=== PATIENT | female | born 1995 | race African-American/Black ===

== ENCOUNTER 2017-01-18 15:03 | Emergency (ER) | payer SELFPAY ==
[~2017-01-18] VITALS: Ht 165.1 cm; Wt 131.5 kg
[2017-01-18 15:14] VITALS: BP 117/59
--- NOTE | 2017-01-18 17:46 | NUR ---
Pt taken to bed 8.
--- NOTE | 2017-01-18 17:50 | NUR ---
21/F PRESENT TO ER WITH BLOOD IN STOOL x TODAY @ 1345. PT DENIES N/V/D. PT DENIES INJURY OR TRAUMA. PAIN 5/10 CRAMPING LOWER ABDOMEN. DENIES N/V/D; SKIN IS PINK/WARM/DRY; AAOX4 WITH EVEN AND STEADY GAIT; LUNGS CLEAR BL; HR EVEN AND REGULAR; PT DENIES ANY FEVER, CP, SOB, OR COUGH AT THIS TIME; PATIENT STATES PAIN OF 5/10 AT THIS TIME; PATIENT POSITIONED FOR COMFORT; HOB ELEVATED; BEDRAILS UP X2; BED DOWN. ER MD MADE AWARE OF PT STATUS.
--- NOTE | 2017-01-18 18:23 | NUR ---
Patient being evaluated by Dr. Golden at bedside.
[2017-01-18 18:47] VITALS: BP 140/70
--- NOTE | 2017-01-18 18:47 | NUR ---
Patient discharged with v/s stable. Written and verbal after care instructions given and explained. Patient verbalized understanding. Ambulatory with steady gait. All questions addressed prior to discharge. Advised to follow up with PMD.
== END 2017-01-18 18:47 | disposition home or self-care (01) ==
LOC: MED 15:03
DX: S39.012A Strain of muscle, fascia and tendon of lower back, initial encounter (principal); V43.62XA Car passenger injured in collision with other type car in traffic accident, initial encounter; Y93.I9 Activity, other involving external motion; Y92.488 Other paved roadways as the place of occurrence of the external cause; Y99.8 Other external cause status

== ENCOUNTER 2018-12-16 04:30 | Emergency (ER) | payer MEDICAID ==
[~2018-12-16] VITALS: Ht 165.1 cm; Wt 134.7 kg
--- NOTE | 2018-12-16 04:36 | NUR ---
PT TAKEN TO BED 8
--- NOTE | 2018-12-16 04:36 | NUR ---
PT PRESENTS TO ED WITH ABSCESS ON LEFT SIDE OF COCCYX. STATES 8/10 PAIN. WORSENING OVER PAST 5 DAYS. TREATING AT HOME WITH DESITIN CREAM WITHOUT RELIEF. AFEBRILE WITH VSS. A&OX4. POSITIONED IN BED FOR COMFORT. ER MD AWARE. CONTINUE TO MONITOR.
[2018-12-16 04:40] VITALS: BP 128/85
--- NOTE | 2018-12-16 04:49 | NUR ---
Dr. Valdes evaluating patient at bedside.
[2018-12-16] MEDS ORDERED: SULFAMETH/TRIMETH DS 800/160MG 1 TAB PO ONE (04:55)
[2018-12-16] MEDS ORDERED: CEPHALEXIN 500 MG CAP PO ONE (04:55)
[2018-12-16 05:26] VITALS: BP 131/76
--- NOTE | 2018-12-16 05:26 | NUR ---
DISCHARGE PAPERS GIVEN TO PT. 09/18 PAIN BUT TOLLERABLE. AFEBRILE WITH VSS. RX OF KEFLEX AND BACTRIM GIVEN. SIDE EFFECTS EXPLAINED. INSTRUCTED TO F/U WITH PCP AND WHEN TO RETURN TO ER. PT VERBALLIZED UNDERSTANDING OF DC INSTRUCTIONS. ALL QUESTIONS ANSWERED.
== END 2018-12-16 05:26 | disposition home or self-care (01) ==
LOC: MED 04:30
DX: L05.01 Pilonidal cyst with abscess (principal); Z88.6 Allergy status to analgesic agent
CPT/HCPCS: 99283